=== PATIENT | male | born 1945 | race Two or more races ===

== ENCOUNTER → 2023-12-03 | Outpatient (CLI) | payer OTHER ==
[2023-12-03 06:26] LABS: Urine WBC None Seen /hpf (0 - 3)
[2023-12-03 07:02] LABS: Basophils # (auto) 0.2 10 ^3/uL (0-0.2); Basophils % (auto) 1.3 % (0.0-2.0); Eosinophils # (auto) 0.4 10 ^3/uL (0-0.8); Eosinophils % (auto) 3.2 % (0.0-7.0); Hematocrit 45.9 % (41.0-53.0); Hemoglobin 15.3 g/dL (13.5-17.5); Lymphocytes % (auto) 15.6 % (10.0-50.0); Mean Corpuscular Hemoglobin 28.7 pg (28.0-32.0); Mean Corpuscular Hgb Conc. 33.4 g/dL (32.0-36.0); Mean Corpuscular Volume 86.1 fL (80.0-100.0); Monocytes # (auto) 1.9 10 ^3/uL (0-1.3); Monocytes % (auto) 15.1 % (0.0-12.0); Neutrophils # (auto) 8.3 10 ^3/uL (1.6-8.6); Neutrophils % (auto) 64.8 % (37.0-80.0); Nucleated Red Blood Cells % 0.1 %; Red Blood Cells 5.33 10^6/uL (4.5-5.90); Red Cell Distribution Width 14.1 % (11.8-14.3); White Blood Cell 12.8 10^3/uL (4.4-10.8)
[2023-12-03 07:27] LABS: Urine Bacteria NONE SEEN /hpf (None Seen); Urine Blood Negative /uL (Negative); Urine Clarity Clear (Clear); Urine Protein, UAD Negative (Negative); Urine Specific Gravity 1.014 (1.001-1.035); Urine Urobilinogen Normal (Negative); Urine pH 5.5 (5.0-8.0)
[2023-12-03 07:28] LABS: Urine Color Straw (Yellow)
[2023-12-03 07:31] LABS: Alanine Aminotransferase 17 U/L (7-40); Albumin 4.2 g/dL (3.2-4.8); Alkaline Phosphatase 63 U/L (46-116); Anion Gap 7 (5-15); Aspartate Aminotransferase 24 U/L (13-40); BUN/Creatinine Ratio 14.7 (10.0-20.0); Bilirubin, Total 0.9 mg/dL (0.2-1.0); Blood Urea Nitrogen 15 mg/dL (9-23); Calcium 9.2 mg/dL (8.7-10.4); Carbon Dioxide 25 mmol/L (20-30); Chloride 104 mmol/L (98-107); Glucose 100 mg/dL (74-106); Magnesium 2.1 mg/dL (1.6-2.6); Potassium 5.1 mmol/L (3.5-5.1); Sodium 136 mmol/L (136-145); Uric Acid 5.7 mg/dL (3.7-9.2)
[2023-12-03 07:35] LABS: Folate (Folic Acid) 17.33 ng/mL (>5.38)
[2023-12-03 07:45] LABS: Triglycerides 97 mg/dL (< 150)
[2023-12-03 07:46] LABS: LDL Cholesterol 85 mg/dL (< 100)
[2023-12-03 07:48] LABS: Cholesterol 132 mg/dL (< 200); HDL Cholesterol 36 mg/dL (40-59)
== END | disposition home or self-care (01) ==
LOC: LAB 06:09
PROVIDERS: ATTEND Internal Medicine
DX: E61.2 Magnesium deficiency (principal); E85.9 Amyloidosis, unspecified; R82.90 Unspecified abnormal findings in urine; D51.9 Vitamin B12 deficiency anemia, unspecified; R78.89 Finding of other specified substances, not normally found in blood; E78.9 Disorder of lipoprotein metabolism, unspecified; R68.89 Other general symptoms and signs; R73.09 Other abnormal glucose
CPT/HCPCS: 36415; 80053; 80061; 81001; 82306; 82607; 82746; 83036; 83735; 84443; 84550; 85025; 87086

== ENCOUNTER → 2024-03-20 | Outpatient (CLI) | payer OTHER ==
[2024-03-20 06:30] LABS: Urine Bacteria None Seen /hpf (None Seen)
[2024-03-20 06:49] LABS: Urine Blood Negative /uL (Negative); Urine Clarity Clear (Clear); Urine Color Light-Yellow (Yellow); Urine Protein, UAD Negative (Negative); Urine Specific Gravity 1.018 (1.001-1.035); Urine Urobilinogen Normal (Negative); Urine WBC 1 /hpf (0 - 3); Urine pH 5.5 (5.0-9.0)
[2024-03-20 07:01] LABS: Basophils # (auto) 0.2 10 ^3/uL (0-0.2); Basophils % (auto) 1.3 % (0.0-2.0); Eosinophils # (auto) 0.4 10 ^3/uL (0-0.8); Eosinophils % (auto) 2.9 % (0.0-7.0); Hematocrit 44.9 % (41.0-53.0); Hemoglobin 15.3 g/dL (13.5-17.5); Mean Corpuscular Hemoglobin 28.7 pg (28.0-32.0); Mean Corpuscular Hgb Conc. 34.1 g/dL (32.0-36.0); Mean Corpuscular Volume 84.1 fL (80.0-100.0); Monocytes # (auto) 1.9 10 ^3/uL (0-1.3); Monocytes % (auto) 15.2 % (0.0-12.0); Neutrophils % (auto) 64.6 % (37.0-80.0); Nucleated Red Blood Cells % 0.1 %; Red Blood Cells 5.34 10^6/uL (4.5-5.90); Red Cell Distribution Width 13.7 % (11.8-14.3); White Blood Cell 12.4 10^3/uL (4.4-10.8)
[2024-03-20 07:30] LABS: Alanine Aminotransferase 15 U/L (7-40); Albumin 4.1 g/dL (3.2-4.8); Alkaline Phosphatase 61 U/L (46-116); Anion Gap 8 (5-15); Aspartate Aminotransferase 18 U/L (13-40); BUN/Creatinine Ratio 21.4 (10.0-20.0); Bilirubin, Total 0.9 mg/dL (0.2-1.0); Blood Urea Nitrogen 21 mg/dL (9-23); Calcium 9.6 mg/dL (8.7-10.4); Carbon Dioxide 24 mmol/L (20-30); Chloride 106 mmol/L (98-107); Glucose 97 mg/dL (74-106); Magnesium 2.1 mg/dL (1.6-2.6); Potassium 4.8 mmol/L (3.5-5.1); Sodium 138 mmol/L (136-145); Total Protein 6.9 g/dL (5.7-8.2); Uric Acid 5.3 mg/dL (3.7-9.2)
[2024-03-20 07:34] LABS: Folate (Folic Acid) 6.43 ng/mL (>5.38)
[2024-03-20 09:00] LABS: Triglycerides 128 mg/dL (< 150)
[2024-03-20 09:01] LABS: LDL Cholesterol 82 mg/dL (< 100)
[2024-03-20 09:02] LABS: Cholesterol 132 mg/dL (< 200); HDL Cholesterol 32 mg/dL (40-59)
== END | disposition home or self-care (01) ==
LOC: LAB 06:12
PROVIDERS: ATTEND Internal Medicine
DX: E79.0 Hyperuricemia without signs of inflammatory arthritis and tophaceous disease (principal); E78.9 Disorder of lipoprotein metabolism, unspecified; E61.2 Magnesium deficiency; R78.89 Finding of other specified substances, not normally found in blood; R68.89 Other general symptoms and signs; R73.09 Other abnormal glucose; D51.9 Vitamin B12 deficiency anemia, unspecified; R82.90 Unspecified abnormal findings in urine; E85.9 Amyloidosis, unspecified
CPT/HCPCS: 36415; 80053; 80061; 81001; 82306; 82607; 82746; 83036; 83735; 84443; 84550; 85025; 87086

== ENCOUNTER → 2024-10-08 | Outpatient (CLI) | payer OTHER ==
[2024-10-08 06:31] LABS: Urine Bacteria None Seen /hpf (None Seen)
[2024-10-08 06:58] LABS: Urine Blood Negative /uL (Negative); Urine Clarity Clear (Clear); Urine Color Light-Yellow (Yellow); Urine Mucus FEW (None Seen); Urine Protein, UAD Negative (Negative); Urine Specific Gravity 1.017 (1.001-1.035); Urine Urobilinogen Normal (Negative); Urine WBC <1 /hpf (0 - 3)
[2024-10-08 07:09] LABS: Basophils # (auto) 0.1 10 ^3/uL (0-0.2); Basophils % (auto) 0.8 % (0.0-2.0); Eosinophils # (auto) 0.3 10 ^3/uL (0-0.8); Eosinophils % (auto) 2.6 % (0.0-7.0); Hematocrit 47.4 % (41.0-53.0); Lymphocytes % (auto) 17.6 % (10.0-50.0); Mean Corpuscular Hemoglobin 28.7 pg (28.0-32.0); Mean Corpuscular Hgb Conc. 33.7 g/dL (32.0-36.0); Mean Corpuscular Volume 85.2 fL (80.0-100.0); Monocytes # (auto) 1.6 10 ^3/uL (0-1.3); Monocytes % (auto) 14.2 % (0.0-12.0); Neutrophils # (auto) 7.5 10 ^3/uL (1.6-8.6); Neutrophils % (auto) 64.8 % (37.0-80.0); Nucleated Red Blood Cells % 0.3 %; Platelet Count (auto) 262 10^3/uL (140-450); Red Blood Cells 5.56 10^6/uL (4.5-5.90); White Blood Cell 11.6 10^3/uL (4.4-10.8)
[2024-10-08 07:40] LABS: Alanine Aminotransferase 17 U/L (7-40); Albumin 4.2 g/dL (3.2-4.8); Alkaline Phosphatase 80 U/L (46-116); Anion Gap 7 (5-15); Aspartate Aminotransferase 21 U/L (13-40); BUN/Creatinine Ratio 17.5 (10.0-20.0); Bilirubin, Total 0.9 mg/dL (0.2-1.0); Blood Urea Nitrogen 18 mg/dL (9-23); Calcium 9.9 mg/dL (8.7-10.4); Carbon Dioxide 28 mmol/L (20-31); Chloride 104 mmol/L (98-107); Cholesterol 175 mg/dL (< 200); Glucose 96 mg/dL (74-106); HDL Cholesterol 41 mg/dL (40-59); Potassium 4.4 mmol/L (3.5-5.1); Sodium 139 mmol/L (136-145); Total Protein 7.2 g/dL (5.7-8.2); Triglycerides 107 mg/dL (< 150)
[2024-10-08 07:44] LABS: LDL Cholesterol 122 mg/dL (< 100)
[2024-10-08 07:45] LABS: Folate (Folic Acid) 10.08 ng/mL (>5.38)
[2024-10-08 09:23] LABS: Uric Acid 7.1 mg/dL (3.7-9.2)
== END | disposition home or self-care (01) ==
LOC: LAB 06:06
PROVIDERS: ATTEND Internal Medicine
DX: E78.9 Disorder of lipoprotein metabolism, unspecified (principal); R79.89 Other specified abnormal findings of blood chemistry; R68.89 Other general symptoms and signs; R73.09 Other abnormal glucose
CPT/HCPCS: 36415; 80053; 80061; 81001; 82306; 82607; 82746; 83036; 84443; 84550; 85025; 87086

== ENCOUNTER → 2024-12-25 | Outpatient (CLI) | payer OTHER ==
[2024-12-25 06:26] LABS: Urine Bacteria None Seen /hpf (None Seen)
[2024-12-25 06:41] LABS: Basophils # (auto) 0.1 10 ^3/uL (0-0.2); Basophils % (auto) 1.1 % (0.0-2.0); Eosinophils # (auto) 0.3 10 ^3/uL (0-0.8); Eosinophils % (auto) 2.6 % (0.0-7.0); Hematocrit 47.3 % (41.0-53.0); Hemoglobin 16.6 g/dL (13.5-17.5); Lymphocytes # (auto) 2.2 10 ^3/uL (0.4-5.4); Lymphocytes % (auto) 16.9 % (10.0-50.0); Mean Corpuscular Hemoglobin 29.6 pg (28.0-32.0); Mean Corpuscular Volume 84.3 fL (80.0-100.0); Monocytes # (auto) 1.8 10 ^3/uL (0-1.3); Monocytes % (auto) 14.1 % (0.0-12.0); Neutrophils # (auto) 8.5 10 ^3/uL (1.6-8.6); Neutrophils % (auto) 65.3 % (37.0-80.0); Nucleated Red Blood Cells % 0.1 %; Platelet Count (auto) 260 10^3/uL (140-450); Red Blood Cells 5.61 10^6/uL (4.5-5.90); Red Cell Distribution Width 14.2 % (11.8-14.3)
[2024-12-25 06:44] LABS: Urine Blood Negative /uL (Negative); Urine Clarity Clear (Clear); Urine Color Light-Yellow (Yellow); Urine Protein, UAD Negative (Negative); Urine Specific Gravity 1.019 (1.001-1.035); Urine Squamous Epithelial Cell None Seen /hpf (<5); Urine Urobilinogen Normal (Negative); Urine WBC < 1 /HPF (0-3)
[2024-12-25 06:52] LABS: Alanine Aminotransferase 11 U/L (7-40); Albumin 4.6 g/dL (3.2-4.8); Alkaline Phosphatase 74 U/L (46-116); Anion Gap 9 (5-15); Aspartate Aminotransferase 17 U/L (13-40); BUN/Creatinine Ratio 21.1 (10.0-20.0); Blood Urea Nitrogen 23 mg/dL (9-23); Calcium 10.1 mg/dL (8.7-10.4); Carbon Dioxide 26 mmol/L (20-31); Chloride 103 mmol/L (98-107); Cholesterol 166 mg/dL (< 200); Glucose 93 mg/dL (74-106); LDL Cholesterol 113 mg/dL (< 100); Potassium 4.9 mmol/L (3.5-5.1); Sodium 138 mmol/L (136-145); Total Protein 7.6 g/dL (5.7-8.2); Triglycerides 160 mg/dL (< 150)
[2024-12-25 06:53] LABS: Bilirubin, Total 0.8 mg/dL (0.2-1.0); HDL Cholesterol 34 mg/dL (40-59)
[2024-12-25 06:54] LABS: Folate (Folic Acid) 12.08 ng/mL (>5.38)
[2024-12-25 07:02] LABS: Uric Acid 6.7 mg/dL (3.7-9.2)
== END | disposition home or self-care (01) ==
LOC: LAB 06:04
PROVIDERS: ATTEND Internal Medicine
DX: E61.2 Magnesium deficiency (principal); E55.9 Vitamin D deficiency, unspecified; D51.9 Vitamin B12 deficiency anemia, unspecified; E78.49 Other hyperlipidemia; E79.0 Hyperuricemia without signs of inflammatory arthritis and tophaceous disease; R94.6 Abnormal results of thyroid function studies; R82.79 Other abnormal findings on microbiological examination of urine; R82.998 Other abnormal findings in urine; R73.09 Other abnormal glucose; R68.89 Other general symptoms and signs; R82.90 Unspecified abnormal findings in urine
CPT/HCPCS: 36415; 80053; 80061; 81001; 82306; 82607; 82746; 83036; 83880; 84443; 84550; 85025; 87086

== ENCOUNTER 2025-04-05 06:08 | Outpatient (CLI) | payer OTHER | END 2025-04-05 17:00 | disposition home or self-care (01) | LOC: LAB 06:08 | PROVIDERS: ATTEND Urology | DX: N40.1 Benign prostatic hyperplasia with lower urinary tract symptoms (principal) | CPT/HCPCS: 84153 ==

== ENCOUNTER → 2025-04-12 | Outpatient (CLI) | payer OTHER ==
[2025-04-12 06:25] LABS: Urine Bacteria None Seen /hpf (None Seen)
[2025-04-12 07:06] LABS: Basophils # (auto) 0.1 10 ^3/uL (0-0.2); Basophils % (auto) 1.4 % (0.0-2.0); Eosinophils # (auto) 0.4 10 ^3/uL (0-0.8); Eosinophils % (auto) 3.8 % (0.0-7.0); Hematocrit 44.6 % (41.0-53.0); Hemoglobin 15.2 g/dL (13.5-17.5); Lymphocytes % (auto) 20.2 % (10.0-50.0); Mean Corpuscular Hemoglobin 28.2 pg (28.0-32.0); Mean Corpuscular Hgb Conc. 34.1 g/dL (32.0-36.0); Mean Corpuscular Volume 82.9 fL (80.0-100.0); Monocytes # (auto) 1.7 10 ^3/uL (0-1.3); Monocytes % (auto) 17.1 % (0.0-12.0); Neutrophils # (auto) 5.7 10 ^3/uL (1.6-8.6); Neutrophils % (auto) 57.5 % (37.0-80.0); Nucleated Red Blood Cells % 0.1 %; Platelet Count (auto) 212 10^3/uL (140-450); Red Blood Cells 5.38 10^6/uL (4.5-5.90); Red Cell Distribution Width 13.5 % (11.8-14.3); White Blood Cell 9.9 10^3/uL (4.4-10.8)
[2025-04-12 07:50] LABS: Urine Blood Negative /uL (Negative); Urine Clarity Clear (Clear); Urine Color Light-Yellow (Yellow); Urine Protein, UAD Negative (Negative); Urine Specific Gravity 1.018 (1.001-1.035); Urine Squamous Epithelial Cell FEW /hpf (<5); Urine Urobilinogen Normal (Negative); Urine WBC < 1 /HPF (0-3)
[2025-04-12 08:18] LABS: Alanine Aminotransferase 13 U/L (7-40); Alkaline Phosphatase 59 U/L (46-116); Anion Gap 7 (5-15); Calcium 9.9 mg/dL (8.7-10.4); Carbon Dioxide 27 mmol/L (20-31); Chloride 105 mmol/L (98-107); Glucose 97 mg/dL (74-106); Potassium 4.3 mmol/L (3.5-5.1); Sodium 139 mmol/L (136-145); Triglycerides 98 mg/dL (< 150)
[2025-04-12 08:19] LABS: Albumin 4.3 g/dL (3.2-4.8); Aspartate Aminotransferase 17 U/L (<34)
[2025-04-12 08:20] LABS: Bilirubin, Total 0.5 mg/dL (0.2-1.0); Blood Urea Nitrogen 25 mg/dL (9-23); Cholesterol 180 mg/dL (< 200); HDL Cholesterol 34 mg/dL (40-59); LDL Cholesterol 140 mg/dL (< 100)
[2025-04-12 08:36] LABS: Uric Acid 8.4 mg/dL (3.7-9.2)
== END | disposition home or self-care (01) ==
LOC: LAB 06:03
PROVIDERS: ATTEND Internal Medicine
DX: E78.49 Other hyperlipidemia (principal); E61.2 Magnesium deficiency; E79.0 Hyperuricemia without signs of inflammatory arthritis and tophaceous disease; E55.9 Vitamin D deficiency, unspecified; R94.6 Abnormal results of thyroid function studies; R82.998 Other abnormal findings in urine; R82.90 Unspecified abnormal findings in urine; R82.79 Other abnormal findings on microbiological examination of urine; D51.9 Vitamin B12 deficiency anemia, unspecified; R68.89 Other general symptoms and signs; R73.09 Other abnormal glucose
CPT/HCPCS: 36415; 80053; 80061; 81001; 82306; 82746; 83036; 84443; 84550; 85025; 87086

== ENCOUNTER 2025-10-04 04:57 | Inpatient (IN) | payer OTHER ==
[~2025-10-04] VITALS: Ht 182.9 cm; Wt 111.4 kg
--- NOTE | 2025-10-04 06:52 | ED.PDOC ---
History of Present Illness HPI Comments 80 year old male with PMHx of HTN presents to the emergency department for chief complaint of L leg injury and general weakness onset 3 days ago. Pt states that he fell off his bed onto his R knee and could not stand up for 3.5 hours. Pt states that the following day he reported a fever of 103 F and his left leg began swelling profusely. Pt refused to go to ER until took him this morning due to intense episodes of confusion and progression of symptoms. In the ED, Pt reports visible inflammation and swelling of the L leg and limited ability to walk. Pt denies associated symptoms of headache, numbness, chest pain, SOB, nausea, vomiting, or diarrhea. Pt vitals are otherwise stable at this time. Chief Complaint: General Weakness Time Seen by MD: 06:49 Reviewed Notes: Nurses Notes, Medications, Allergies Allergies: Coded Allergies: Ciprofloxacin (Verified Allergy, Unknown, 10/04/25) Information Source: Patient, Spouse Mode of Arrival: EMS Severity: Moderate Timing: Days Duration: Since onset Prehospital treatment: None Past Medical History PAST MEDICAL HISTORY: HTN, Denies Surgical History: Denies all surgeries Constitutional: reports: fever, weakness; denies: chills, diaphoresis, fatigue, malaise, sweats, others EENTM: denies: blurred vision, double vision, ear bleeding, ear discharge, ear drainage, ear pain, ear ringing, eye pain, eye redness, hearing loss, mouth pain, mouth swelling, nasal discharge, nose bleeding, nose congestion, nose pain, photophobia, tearing, throat pain, throat swelling, voice changes, others Respiratory: denies: cough, hemoptysis, orthopnea, SOB at rest, shortness of breath, SOB with excertion, stridor, wheezing, others Cardiovascular: denies: chest pain, dizzy spells, diaphoresis, Dyspnea on exertion, edema, irregular heart beat, left arm pain, lightheadedness, palpitations, PND, syncope, others Gastrointestinal: denies: abdomen distended, abdominal pain, blood streaked bowels, constipated, diarrhea, dysphagia, difficulty swallowing, hematemesis, melena, nausea, poor appetite, poor fluid intake, rectal bleeding, rectal pain, vomiting, others Genitourinary: denies: burning, dysuria, flank pain, frequency, hematuria, incontinence, penile discharge, penile sore, pain, testicle pain, testicle swelling, urgency, others Neurological: denies: dizziness, fainting, headache, left sided numbness, left sided weakness, numbness, paresthesia, pre-existing deficit, right sided numbness, right sided weakness, seizure, speech problems, tingling, tremors, weakness, others Musculoskeletal: reports: muscle pain; denies: back pain, gout, joint pain, joint swelling, muscle stiffness, neck pain, others Integumetry: reports: bruises, change in color, dryness; denies: change in hair/nails, laceration, lesions, lumps, rash, wounds, others Allergic/Immunocompromised: denies: Difficulty Healing, Frequent Infections, Hives, Itching, others Hematologic/Lymphatic: denies: anemia, blood clots, easy bleeding, easy bruising, swollen glands, others Endocrine: denies: excessive hunger, excessive sweating, excessive thirst, excessive urination, flushing, intolerance to cold, intolerance to heat, unexplained weight gain, unexplained weight loss, others Psychiatric: denies: anxiety, bipolar disorder, depression, hopeless, panic disorder, schizophrenia, sleepless, suicidal, others All Other Systems: Reviewed and Negative Physical Exam General Appearance: Moderate Distress HEENT: Normal ENT Inspection, Pharynx Normal, TMs Normal Neck: Full Range of Motion, Non-Tender, Normal, Normal Inspection Respiratory: Chest Non-Tender, Lungs Clear, No Accessory Muscle Use, No Respiratory Distress, Normal Breath Sounds Cardiovascular: No Edema, No JVD, No Murmur, No Gallop, Normal Peripheral Pulses, Regular Rate/Rhythm Breast Exam: Deferred Gastrointestinal: No Organomegaly, Non Tender, No Pulsatile Mass, Normal Bowel Sounds, Soft Genitalia: Deferred Pelvic: Deferred Rectal: Deferred Extremities: No calf tenderness, Swelling (Left lower extremity mild) Musculoskeletal : Apperance: Normal Neurologic: Alert, 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 Was a procedure done?: No Differential Dx Considerations may include: Anemia Electrolyte imbalance X-Ray, Labs, Meds, VS Vital Signs Date Time Temp Pulse Resp B/P (MAP) Pulse Ox O2 Delivery O2 Flow Rate FiO2 10/04/25 10:17 97.8 87 16 141/74 (96) 94 97.8 10/04/25 09:59 16 Room Air* 0 21 10/04/25 07:39 97.7 94 16 161/78 (105) 95 97.7 10/04/25 05:09 99 10/04/25 05:04 98.9 100 16 11 98 98.9 Lab Test 10/04/25 10:05 10/04/25 07:33 Range/Units Lactic Acid Level 1.6 0.4-2.0 mmol/L White Blood Count 25.7 H 4.4-10.8 10^3/uL Red Blood Count 6.15 H 4.5-5.90 10^6/uL Hemoglobin 17.1 13.5-17.5 g/dL Hematocrit 50.2 41.0-53.0 % Mean Corpuscular Volume 81.6 80.0-100.0 fL Mean Corpuscular Hemoglobin 27.8 L 28.0-32.0 pg Mean Corpuscular Hemoglobin Concent 34.1 32.0-36.0 g/dL Red Cell Distribution Width 14.0 11.8-14.3 % Platelet Count 300 140-450 10^3/uL Mean Platelet Volume 7.9 6.9-10.8 fL Neutrophils (%) (Auto) 37.0-80.0 % Lymphocytes (%) (Auto) 10.0-50.0 % Monocytes (%) (Auto) 0.0-12.0 % Basophils (%) (Auto) 0.0-2.0 % Neutrophils # (Auto) 1.6-8.6 10 ^3/uL Lymphocytes # (Auto) 0.4-5.4 10 ^3/uL Monocytes # (Auto) 0-1.3 10 ^3/uL Differential Total Cells Counted 100.0 100 Neutrophils % (Manual) 83 H 37.0-80.0 Band Neutrophils % (Manual) 0 Lymphocytes % (Manual) 7 L 10.0-50.0 Monocytes % (Manual) 10 0-12 Eosinophils % (Manual) 0 0-7 Basophils % (Manual) 0 0.0-2.0 Metamyelocytes % (manual) 0 Myelocytes % (Manual) 0 Promyelocytes % (Manual) 0 Blast Cells % (Manual) 0 Reactive Lymphocytes 0 Platelet Estimate Adequate Erythrocyte Sedimentation Rate 33 H 0-20 mm/hr Sodium Level 137 136-145 mmol/L Potassium Level 3.8 3.5-5.1 mmol/L Chloride Level 102 98-107 mmol/L Carbon Dioxide Level 25 20-31 mmol/L Anion Gap 10 5-15 Blood Urea Nitrogen 21 9-23 mg/dL Creatinine 1.29 0.700-1.30 mg/dL Glomerular Filtration Rate Calc 56 >90 mL/min BUN/Creatinine Ratio 16.3 10.0-20.0 Serum Glucose 108 H 74-106 mg/dL Calcium Level 9.7 8.7-10.4 mg/dL Creatine Kinase 1383 H 46-171 U/L Troponin I High Sensitivity 284 *H </=54 ng/L B-Type Natriuretic Peptide 119.67 0-100 pg/mL Current Medications Medications (Trade) Dose Ordered Sig/Ilsa Route Start Time Stop Time Status Last Admin Sodium Chloride 1,000 ml @ 1,000 mls/hr Q1H ONCE IV 10/04/25 07:00 10/04/25 07:59 DC 10/04/25 08:21 Sodium Chloride 1,000 ml @ 150 mls/hr Q6H40M ONCE IV 10/04/25 07:00 10/04/25 13:39 DC 10/04/25 07:00 Ceftriaxone Sodium 50 ml @ 100 mls/hr ONCE ONCE IV 10/04/25 09:15 10/04/25 09:44 DC 10/04/25 09:15 Clindamycin Phosphate 50 ml @ 50 mls/hr ONCE ONCE IV 10/04/25 09:15 10/04/25 10:14 DC 10/04/25 16:45 Patient alert. Vitals stable. Came in because of wound of left lower extremity. Answering questions pain Saturation pristine on room air. Explained to the patient. Was told to follow up with his primary care physician. Was told to come back if there is any problem. Time of 1ST Reevaluation: 07:19 Reevaluation 1ST: Unchanged Patient Education/Counseling: Diagnosis, Treatment, Need For Follow Up Family Education/Counseling: Diagnosis, Treatment, Need For Follow Up SEPSIS Sepsis Screen Date sepsis recognized/suspect: Oct 04, 2025 Time Sepsis recognized/suspect: 0507 Recent Procedure: No On Antibiotic Therapy: No Respiratory Rate >20: No Heart Rate >90: Yes Temp<36 C (96.8 F) or >38.3 C: No SBP <90 or MAP <65 mmHG: No New Acute Mental Status Change: No Is the patient on CPAP, BIPAP,: No Physician Orders Electrocardigram (10/04/25 06:40) Chest Portable (10/04/25 06:46) Lt Lower Dvt (10/04/25 07:28) Blood Culture (10/04/25 09:01) Electrocardigram (10/04/25 09:03) Vital Signs Date Time Temp Pulse Resp B/P (MAP) Pulse Ox O2 Delivery O2 Flow Rate FiO2 10/04/25 10:17 97.8 87 16 141/74 (96) 94 97.8 10/04/25 09:59 16 Room Air* 0 21 10/04/25 07:39 97.7 94 16 161/78 (105) 95 97.7 10/04/25 05:09 99 10/04/25 05:04 98.9 100 16 11 98 98.9 Laboratory Tests Test 10/04/25 07:33 10/04/25 10:05 White Blood Count 25.7 10^3/uL (4.4-10.8) H Lactic Acid Level 1.6 mmol/L (0.4-2.0) Medications Medications Dose Ordered Sig/Ilsa Route Start Time Stop Time Status Last Admin Dose Admin Ceftriaxone Sodium 50 ml @ 100 mls/hr ONCE ONCE IV 10/04/25 09:15 10/04/25 09:44 DC 10/04/25 09:15 Clindamycin Phosphate 50 ml @ 50 mls/hr ONCE ONCE IV 10/04/25 09:15 10/04/25 10:14 DC 10/04/25 16:45 Sodium Chloride 1,000 ml @ 150 mls/hr Q6H40M ONCE IV 10/04/25 07:00 10/04/25 13:39 DC 10/04/25 07:00 Sodium Chloride 1,000 ml @ 1,000 mls/hr Q1H ONCE IV 10/04/25 07:00 10/04/25 07:59 DC 10/04/25 08:21 Departure 1 Departure Time of Disposition: 07:27 Impression: Primary Impression: Sepsis, unspecified organism Qualified Codes: A41.9 - Sepsis, unspecified organism Additional Impressions: Cellulitis Qualified Codes: L03.116 - Cellulitis of left lower limb Demand ischemia Disposition: ADMITTED INPATIENT Admit to: Med Surg Condition: Guarded Critical Care Note Critical Care Time?: Yes (90 min-critical care time only) Stability Stability form required: No Heart Score Heart Score: Heart Score Response (Comments) Value History N/A 0 EKG N/A 0 Age N/A 0 Risk Factors N/A 0 Troponin N/A 0 Total 0 I personally scribed for LUBA FAGAN MD ([email or web address]) on 10/04/25 at 06:52. Electronically submitted by Pauline Kimball ([email or web address]). I personally scribed for LUBA FAGAN MD ([email or web address]) on 10/04/25 at 07:17. Electronically submitted by Mendoza Padilla ([email or web address]). LUBA FAGAN MD Oct 04, 2025 06:52
--- NOTE | 2025-10-04 06:53 | ECG ---
[facility] Test Date: 2025-10-04 Test Time: 05:09:08 Pat Name: LIZBET CANTRELL Department: [facility] ED Room: [address] [place] [address] Gender: M Census Taker: SULLY : 1945 Requested By: LUBA FAGAN Order Number: [id number] Reading MD: Ino Black Measurements Intervals Bode Rate: 99 P: -46 ND: 214 QRS: -55 QRSD: 139 T: 28 QT: 382 QTc: 491 Interpretive Statements Sinus or ectopic atrial rhythm Borderline prolonged ND interval RBBB and LAFB Minimal ST elevation, lateral leads Electronically Signed On 10-04-2025 15:29:27 PST by Ino Black Please click the below link to view image of tracing.
[2025-10-04] MEDS: SODIUM CHLORIDE 0.9% 1,000 ML IV ONE ×2 (07:00→08:21)
--- NOTE | 2025-10-04 07:42 | DVH ---
CLINICAL INFORMATION: Shortness of breath. TECHNIQUE: Single AP portable chest radiograph was obtained. COMPARISON: None FINDINGS: Lungs: Atelectasis in the lung bases. No focal consolidation. No pneumothorax or pleural effusion. Cardiac: Heart size is within normal limits. Pulmonary vasculature: Unremarkable. Mediastinum/josué: Unremarkable. Bones: No acute osseous abnormality identified. Severe arthritic changes in both shoulders partially visualized. Possible loose body in the right axillary recess. Other: No other significant findings. IMPRESSION: 1. No evidence of acute disease in the chest. 2. Nonacute findings as described above.
[2025-10-04 07:59] LABS: Hematocrit 50.2 % (41.0-53.0); Hemoglobin 17.1 g/dL (13.5-17.5); Mean Corpuscular Hemoglobin 27.8 pg (28.0-32.0); Mean Corpuscular Volume 81.6 fL (80.0-100.0)
[2025-10-04 08:04] LABS: Chloride 102 mmol/L (98-107); Potassium 3.8 mmol/L (3.5-5.1); Sodium 137 mmol/L (136-145)
[2025-10-04 08:05] LABS: Anion Gap 10 (5-15); Calcium 9.7 mg/dL (8.7-10.4); Carbon Dioxide 25 mmol/L (20-31)
[2025-10-04 08:10] LABS: BUN/Creatinine Ratio 16.3 (10.0-20.0); Blood Urea Nitrogen 21 mg/dL (9-23)
[2025-10-04 08:16] LABS: Glucose 108 mg/dL (74-106)
[2025-10-04 08:33] LABS: Creatine Kinase IFCC 1383 U/L (46-171)
[2025-10-04 08:58] LABS: Total Cells Counted 100.0 (100)
--- NOTE | 2025-10-04 09:38 | DVH ---
US LT LOWER DVT US 10/04/2025 07:36 AM CLINICAL HISTORY: dvt COMPARISON: None TECHNIQUE: Duplex Doppler evaluation of the deep venous system of the left lower extremity from the common femoral vein to the popliteal vein including color Doppler and spectral/pulsed waveform analysis was performed. FINDINGS: The common femoral vein demonstrates appropriate compressibility and waveform variability. There is compressibility/patency of the great saphenous vein at the proximal thigh. The femoral vein demonstrates appropriate compressibility and waveform variability. The deep femoral vein demonstrates appropriate compressibility and waveform variability. The popliteal vein demonstrates appropriate compressibility and waveform variability. There is color flow in the tibioperoneal trunk and posterior tibial vein. A benign-appearing mildly prominent left groin lymph node noted likely reactive in nature. IMPRESSION: 1. No deep venous thrombosis left lower extremity. If clinical concern/symptoms persist or worsen, short-interval follow-up study is suggested.
[2025-10-04 09:59] VITALS: RESP 16
[2025-10-04] MEDS ORDERED: ONDANSETRON HCL 4 MG/2 ML VIAL IV PRN (11:45)
[2025-10-04] MEDS ORDERED: NITROGLYCERIN 0.4 MG SL TAB SL PRN (11:45)
[2025-10-04 12:07] LABS: Urine Protein, UAD 1+ (Negative)
--- NOTE | 2025-10-04 12:22 | DVHHPRES ---
History of Present Illness Resident Creating Document: MARY PORTILLO RESIDENT History of Present Illness Justin is a patient with a history of borderline diabetes (resolved after 125- pound weight loss) and hypertension presented to ED after a fall that occurred on Saturday and wound on left lower extremity which has been painful. The patient reports sliding off his bed while awake, which resulted in his knees rolling across the carpet. He did not hit his head during the fall. It took approximately 3.5 hours for him and a friend to get him back up, with his also present at home. Following the fall, he was able to eat in his recliner and later get up to use the restroom. On Saturday, he remained in his chair and experienced difficulty getting up easily, feeling weak from the previous day's incident. He uses a walker when having problems with his knee and has a history of knee surgery. The patient denies fever, cold symptoms, cough, vomiting, difficulty with urination, burning sensation, or back/side pain. He reports no other current symptoms related to the fall. Patient reported the wound on the left lower extremity is there for long time but recently started having more painful. Unable to give much information about the wound. Medical History - Hypertension - History of borderline diabetes, resolved after 125-pound weight loss Surgical History - Knee surgery Medications and Supplements( for med rec) - Hydrocodone - Lipitor 10 - Oxybutynin for urination - Allopurinol Social History - Living Situation: Lives at home with - Substance Use: Denies smoking and drinking when asked - Mobility: Uses a walker when having problems with knee Review of Systems: Positive for pain in the left lower extremity and swelling bed rest of ROS is negative General: Negative for fever. Respiratory: Negative for cough, cold. Gastrointestinal: Negative for vomiting. Genitourinary: Negative for difficulty with urination, burning sensation, back pain, flank pain. Review of Systems Allergies: Coded Allergies: Ciprofloxacin (Verified Allergy, Unknown, 10/04/25) Medications Current Medications Medications Dose Ordered Sig/Ilsa Route Start Time Stop Time Status Last Admin Dose Admin Sodium Chloride 10 ml Q8HR IV 10/04/25 14:00 UNV Sodium Chloride 1,000 ml @ 60 mls/hr [id number] IV 10/04/25 11:45 UNV Ondansetron HCl 4 mg Q4HP PRN IV 10/04/25 11:45 UNV Enoxaparin Sodium 40 mg DAILY SC 10/05/25 10:00 UNV Acetaminophen 650 mg Q6HP PRN PO 10/04/25 11:45 UNV Morphine Sulfate 2 mg Q4HPRN PRN IV 10/04/25 11:45 UNV Nitroglycerin 0.4 mg Q5MINP PRN SL 10/04/25 11:45 UNV Morphine Sulfate 2 mg Q30M PRN IV 10/04/25 11:45 UNV Exam Vital Signs Vital Signs Date Time Temp Pulse Resp B/P (MAP) Pulse Ox O2 Delivery O2 Flow Rate FiO2 10/04/25 10:17 97.8 87 16 141/74 (96) 94 97.8 10/04/25 09:59 Room Air* 0 21 Exam Pt is lying on bed General Appearance: Alert, Oriented X3, Cooperative, Not in acute distress HEENT: Atraumatic, Mucous membranes moist/pink Respiratory: Clear to auscultation, Normal air movement, No added sounds Cardiovascular: Regular rate, Normal S1, Normal S2, No murmurs Abdominal: Active bowel sounds, Soft, no distention, no tenderness Extremities: 2+ edema left leg and lesion on left lower leg, multiple abrasions over bilateral legs Skin: Lesion noted on left leg described Neuro: Normal speech, sensorimotor deficits none Psych/Mental Status: Mental status NL, Mood NL Nurse was there as steam table associate during examination Labs/Xrays Labs Test 10/04/25 11:45 10/04/25 10:05 10/04/25 07:33 Range/Units Urine Color Light-yellow Yellow Urine Clarity Clear Clear Urine pH 5.5 5.0-9.0 Urine Specific [place] 1.015 1.001-1.035 Urine Protein 1+ H Negative Urine Ketones Negative Negative Urine Blood 1+ H Negative /uL Urine Nitrite Negative Negative Urine Bilirubin Negative Negative Urine Urobilinogen Normal Negative mg/dL Urine Leukocyte Esterase Negative Negative /uL Urine RBC 2 0 - 3 /hpf Urine Microscopic WBC 1 0-3 /HPF Urine Squamous Epithelial Cells Few <5 /hpf Urine Bacteria Few H None Seen /hpf Urine Mucus Few None Seen Urine Glucose Normal Normal mg/dL Lactic Acid Level 1.6 0.4-2.0 mmol/L White Blood Count 25.7 H 4.4-10.8 10^3/uL Red Blood Count 6.15 H 4.5-5.90 10^6/uL Hemoglobin 17.1 13.5-17.5 g/dL Hematocrit 50.2 41.0-53.0 % Mean Corpuscular Volume 81.6 80.0-100.0 fL Mean Corpuscular Hemoglobin 27.8 L 28.0-32.0 pg Mean Corpuscular Hemoglobin Concent 34.1 32.0-36.0 g/dL Red Cell Distribution Width 14.0 11.8-14.3 % Platelet Count 300 140-450 10^3/uL Mean Platelet Volume 7.9 6.9-10.8 fL Neutrophils (%) (Auto) 37.0-80.0 % Lymphocytes (%) (Auto) 10.0-50.0 % Monocytes (%) (Auto) 0.0-12.0 % Basophils (%) (Auto) 0.0-2.0 % Neutrophils # (Auto) 1.6-8.6 10 ^3/uL Lymphocytes # (Auto) 0.4-5.4 10 ^3/uL Monocytes # (Auto) 0-1.3 10 ^3/uL Differential Total Cells Counted 100.0 100 Neutrophils % (Manual) 83 H 37.0-80.0 Band Neutrophils % (Manual) 0 Lymphocytes % (Manual) 7 L 10.0-50.0 Monocytes % (Manual) 10 0-12 Eosinophils % (Manual) 0 0-7 Basophils % (Manual) 0 0.0-2.0 Metamyelocytes % (manual) 0 Myelocytes % (Manual) 0 Promyelocytes % (Manual) 0 Blast Cells % (Manual) 0 Reactive Lymphocytes 0 Platelet Estimate Adequate Sodium Level 137 136-145 mmol/L Potassium Level 3.8 3.5-5.1 mmol/L Chloride Level 102 98-107 mmol/L Carbon Dioxide Level 25 20-31 mmol/L Anion Gap 10 5-15 Blood Urea Nitrogen 21 9-23 mg/dL Creatinine 1.29 0.700-1.30 mg/dL Glomerular Filtration Rate Calc 56 >90 mL/min BUN/Creatinine Ratio 16.3 10.0-20.0 Serum Glucose 108 H 74-106 mg/dL Calcium Level 9.7 8.7-10.4 mg/dL Creatine Kinase 1383 H 46-171 U/L Troponin I High Sensitivity 284 *H </=54 ng/L SEPSIS Sepsis Screen Date sepsis recognized/suspect: Oct 04, 2025 Time Sepsis recognized/suspect: 0507 Recent Procedure: No On Antibiotic Therapy: No Respiratory Rate >20: No Heart Rate >90: Yes Temp<36 C (96.8 F) or >38.3 C: No SBP <90 or MAP <65 mmHG: No New Acute Mental Status Change: No Is the patient on CPAP, BIPAP,: No Physician Orders Chest Portable (10/04/25 06:46) Sodium Chloride 0.9% (10/04/25 07:00) Lt Lower Dvt (10/04/25 07:28) Blood Culture (10/04/25 09:01) Electrocardigram (10/04/25 09:03) Admit (10/04/25 11:43) Allergies (10/04/25 11:43) Code Status (10/04/25 11:43) 2 Gm Sodium Diet (10/04/25 Lunch) Sodium Chloride Lock (Saline Lock Ns) (10/04/25 14:00) Sodium Chloride 0.9% (10/04/25 11:45) Ondansetron Hcl (Zofran) (10/04/25 11:45) Enoxaparin Sodium (Lovenox) (10/05/25 10:00) Complete Blood Count (10/05/25 04:00) Comprehensive Metabolic Panel (10/05/25 04:00) Condition: Fair (10/04/25 11:43) Acetaminophen Tablet (Tylenol Tablet) (10/04/25 11:45) Morphine Sulfate Injection (10/04/25 11:45) Nitroglycerin Sublingual (Ntrostat Subli (10/04/25 11:45) Morphine Sulfate Injection (10/04/25 11:45) Oxygen By Nasal Cannula (10/04/25 11:43) Stat Ekg For Chest Pain (10/04/25 11:43) Notify Md Of Changes From Base (10/04/25 11:43) Curing Room Worker For 24 Hours (10/04/25 11:43) Emergency Dysrhythmia Protocol (10/04/25 11:43) Rhythm Strips Once Every Shift (10/04/25 11:43) B-Type Natriuretic Peptide (10/04/25 11:43) Wound Culture W/ Gs (10/04/25 11:43) Clean Wound (10/04/25 11:43) * Wound Consult (10/04/25 11:43) Troponin-I Hs (10/04/25 11:43) Erythrocyte Sedimentation Rate (10/04/25 11:43) PTPTT (10/04/25 11:43) Urinalysis (10/04/25 11:43) Troponin-I Hs (10/04/25 12:43) Ct L Foot Wo Contrast (10/04/25 11:43) Hydralazine Injection (Apresoline Inject (10/04/25 12:15) Sodium Chloride 0.9% (10/04/25 12:15) Clindamycin 600mg Iv (Cleocin Iv) (10/04/25 14:00) Ceftriaxone 1gm/50ml (Rocephin) (10/05/25 09:00) Bilat Low Ext Art Duplex (10/04/25 12:11) Vital Signs Date Time Temp Pulse Resp B/P (MAP) Pulse Ox O2 Delivery O2 Flow Rate FiO2 10/04/25 10:17 97.8 87 16 141/74 (96) 94 97.8 10/04/25 09:59 16 Room Air* 0 21 10/04/25 07:39 97.7 94 16 161/78 (105) 95 97.7 10/04/25 05:09 99 10/04/25 05:04 98.9 100 16 11 98 98.9 Laboratory Tests Test 10/04/25 07:33 10/04/25 10:05 White Blood Count 25.7 10^3/uL (4.4-10.8) H Lactic Acid Level 1.6 mmol/L (0.4-2.0) Medications Medications Dose Ordered Sig/Ilsa Route Start Time Stop Time Status Last Admin Dose Admin Ceftriaxone Sodium 50 ml @ 100 mls/hr ONCE ONCE IV 10/04/25 09:15 10/04/25 09:44 DC 10/04/25 09:15 100 MLS/HR Sodium Chloride 1,000 ml @ 150 mls/hr Q6H40M ONCE IV 10/04/25 07:00 10/04/25 13:39 10/04/25 07:00 150 MLS/HR Sodium Chloride 1,000 ml @ 1,000 mls/hr Q1H ONCE IV 10/04/25 07:00 10/04/25 07:59 DC 10/04/25 08:21 1,000 MLS/HR Assessment/Plan Assessment/Plan Justin is a patient with history of borderline diabetes (resolved with 125- pound weight loss) and hypertension who presents after falling off his bed on Saturday, requiring 3.5 hours to get up, with subsequent weakness along with the wound on left lower extremity: Sepsis likely due to below Left lower extremity cellulitis Rule out left lower extremity abscess /osteomyelitis Rule out PAD Ruled out DVT NSTEMI likely type 2 due to above-repeat troponins Possible rhabdomyolysis from above Plan: - Start antibiotics Rocephin for Gram-negative coverage and clindamycin for justin toxin( no Pseudomonas / MRSA coverage as needed as patient is not immunocompromised and currently living at home) - IV fluids per sepsis protocol - avoid nephrotoxic agents - wound cultures and wound consult - ordered a CT without contrast to rule out abscess/osteomyelitis - ordered arterial duplex -monitor CK levels a.m. Mechanical fall without LOC - fall precautions - consider physical therapy if needed Hypertension - continuously monitor blood pressure - hydralazine if SBP more than 160 PUD PPX not indicated DVT PPX Lovenox Cardiac diet Goals of care discussed with the patient for more than 27 minutes: Full code status Case discussed with Dr. Murphy, patient and nurse Plan discussed with: Patient My Orders Orders - MARY PORTILLO RESIDENT Procedure Category Date Status Time Admit ADMIT 10/04/25 Transmitted 11:43 Allergies ANNAMARIE 10/04/25 In Process 11:43 Code Status CODE 10/04/25 Transmitted 11:43 2 Gm Sodium Diet DIET 10/04/25 Transmitted Lunch Sodium Chloride Lock PHA 10/04/25 Logged (Saline Lock Ns) 14:00 Sodium Chloride 0.9% PHA 10/04/25 Logged 11:45 Ondansetron Hcl PHA 10/04/25 Logged (Zofran) 11:45 Enoxaparin Sodium PHA 10/05/25 Logged (Lovenox) 10:00 Complete Blood Count LAB 10/05/25 Verified 04:00 Comprehensive LAB 10/05/25 Verified Metabolic Panel 04:00 Condition: Fair ANNAMARIE 10/04/25 In Process 11:43 Acetaminophen Tablet PHA 10/04/25 Logged (Tylenol Tablet) 11:45 Morphine Sulfate PHA 10/04/25 Logged Injection 11:45 Nitroglycerin PHA 10/04/25 Logged Sublingual (Ntrostat 11:45 Morphine Sulfate PHA 10/04/25 Logged Injection 11:45 Oxygen By Nasal RT 10/04/25 Transmitted Cannula 11:43 Stat Ekg For Chest [facility] 10/04/25 In Process Pain 11:43 Notify Md Of Changes [facility] 10/04/25 In Process From Base 11:43 Curing Room Worker For [facility] 10/04/25 In Process 24 Hours 11:43 Emergency Dysrhythmia [facility] 10/04/25 In Process Protocol 11:43 Rhythm Strips Once [facility] 10/04/25 In Process Every Shift 11:43 B-Type Natriuretic LAB 10/04/25 Logged Peptide 11:43 Wound Culture W/ Gs JIMMY 10/04/25 Logged 11:43 Clean Wound ED NURSING 10/04/25 Transmitted 11:43 * Wound Consult CONS 10/04/25 Transmitted 11:43 Troponin-I Hs LAB 10/04/25 Logged 11:43 Erythrocyte LAB 10/04/25 Logged Sedimentation Rate 11:43 PTPTT LAB 10/04/25 Logged 11:43 Urinalysis LAB 10/04/25 Logged 11:43 Troponin-I Hs LAB 10/04/25 Logged 12:43 Ct L Foot Wo Contrast CT 10/04/25 Logged 11:43 Hydralazine Injection PHA 10/04/25 Logged (Apresoline Inject 12:15 Sodium Chloride 0.9% PHA 10/04/25 Logged 12:15 Clindamycin 600mg Iv PHA 10/04/25 Logged (Cleocin Iv) 14:00 Ceftriaxone 1gm/50ml PHA 10/05/25 Logged (Rocephin) 09:00 Bilat Low Ext Art US 10/04/25 Logged Duplex 12:11 Visit Coding STANDARD RES Billing Provider: ROYCE MURPHY MD Date of Service if different f: Oct 04, 2025 Common Visit Codes: [id number] INP/OBS CARE (HIGH) Secondary Visit Codes: [id number] CARE PLAN 30 MINUTES MARY PORTILLO RESIDENT Oct 04, 2025 12:21 ROYCE MURPHY MD Oct 05, 2025 21:57
[2025-10-04] MEDS ORDERED: MORPHINE SULFATE 4 MG/ML SYR/VIAL IV PRN (13:15)
--- NOTE | 2025-10-04 13:53 | DVH ---
CLINICAL INFORMATION: Rule out osteomyelitis, left lower leg medial aspect tibia. TECHNIQUE: Axial CT images of the left foot were obtained without IV contrast. Coronal and sagittal reformatted images were obtained, reviewed, and stored. 3D reconstructed images were created at an independent workstation with concurrent physician supervision. All CT scans at this medical facility are performed using dose modulation techniques as appropriate to a performed exam including the following: Automated exposure control was utilized; adjustment of the MA and/or KV according to patient size; and use of iterative reconstruction technique. CTDIvol = not provided at the time of dictation. DLP = not provided at the time of dictation. COMPARISON: None. FINDINGS: Chronic appearing fracture of the base of the medial malleolus with callus formation and areas of partial osseous fusion. 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 Prominent spurring at the inferior aspect of the medial malleolus. There is hindfoot valgus malalignment. Severe arthritic changes also noted at the talonavicular joint and cuneonavicular joint with joint space narrowing and subchondral cystic change. There is subcutaneous edema throughout the visualized portions of the distal right lower leg, right ankle, and right foot. No organized fluid collection identified to suggest a bscess, although limited evaluation for abscess on noncontrast enhanced CT. No definite bony destructive changes are seen to suggest osteomyelitis. IMPRESSION: 1. No definite bony destructive changes are seen to suggest osteomyelitis. If there remains clinical suspicion for osteomyelitis, MRI could be obtained. 2. Chronic appearing fracture at the base of the medial malleolus with associated callus formation and areas of partial osseous fusion. 3. Arthritic changes and hindfoot valgus malalignment as described above. 4. Prominent subcutaneous edema, may be seen with cellulitis in the appropriate clinical setting. No organized fluid collection identified to suggest abscess, although limited evaluation for abscess without IV contrast. 5. Additional findings as detailed above.
[2025-10-04 13:58] LABS: INR 1.19 (0.9-1.15); Partial Thromboplastin Time 31.3 SEC (24.5-34.5); Prothrombin Time 12.4 sec (9.3-11.8)
[2025-10-04] MEDS: SODIUM CHLOR 0.9% PF (SALINE LOCK) 10ML VIAL/SYR IV SCH (14:00)
--- NOTE | 2025-10-04 15:40 | DVH ---
BILATERAL LOWER EXTREMITY ARTERIAL DUPLEX ULTRASOUND STUDY: REASON FOR EXAM: peripheral arterial disease TECHNIQUE: The full lengths of the arterial segments were evaluated with color- flow Doppler ultrasound. Suspected abnormalities were evaluated with garcia scale ultrasound. Reading Recovery Teacher spectral Doppler waveforms, with velocity measurements were obtained. Spectral waveforms with velocity measurements were obtained 2 to 4 cm central to any areas of significant stenosis. Common femoral, superficial femoral, popliteal, posterior tibial, anterior tibial, and dorsal pedal arteries were evaluated. FINDINGS: Right: There is diffuse atherosclerotic plaque throughout the right lower extremity. The common femoral artery waveform is multiphasic with a brisk upstroke. The superficial femoral and popliteal arteries are patent with multiphasic waveforms. The posterior tibial, anterior tibial, and dorsalis pedis arteries are patent with multiphasic waveforms. Left: There is diffuse atherosclerotic plaque throughout the left lower extremity. The common femoral artery waveform is multiphasic with a brisk upstroke. The superficial femoral and popliteal arteries are patent with multiphasic waveforms. The posterior tibial, anterior tibial, and dorsal pedal arteries are patent with monophasic waveforms. IMPRESSION: Bilateral lower extremity atherosclerotic disease, left worse than right. No focal stenosis or occlusion is identified.
[2025-10-04] MEDS: SODIUM CHLORIDE 0.9% 2,350 ML IV ONE (16:45)
[2025-10-04] MEDS: CLINDAMYCIN 600MG IV 50 ML IV ONE (16:45)
[2025-10-04] MEDS: CLINDAMYCIN 600MG IV 50 ML IV SCH (16:46)
[2025-10-04] MEDS ORDERED: ATOR10TA52 PO (18:19)
[2025-10-04] MEDS ORDERED: HYDR-4072 (18:19)
[2025-10-04] MEDS ORDERED: ALLO300T2 PO (18:19)
[2025-10-04 18:55] VITALS: PULSE 91; RESP 16; O2SAT 96
[2025-10-04 20:00] VITALS: PULSE 92; RESP 20; O2SAT 94
[2025-10-04] MEDS ORDERED: LOSA-535 PO (20:07)
[2025-10-04 21:00] VITALS: BP 147/72; PULSE 92; RESP 20; TEMP 98.2; O2SAT 94
[2025-10-04] MEDS: SODIUM CHLORIDE 0.9% 1,000 ML IV SCH (21:12)
[2025-10-04] MEDS: ACETAMINOPHEN 325 MG TAB PO PRN (21:56)
[2025-10-05 01:00] VITALS: BP 100/64; PULSE 74; RESP 16; TEMP 97.9; O2SAT 98
[2025-10-05 05:00] VITALS: BP 158/65; PULSE 69; RESP 16; TEMP 97.7; O2SAT 96
[2025-10-05 05:46] LABS: Hematocrit 42.7 % (41.0-53.0); Hemoglobin 14.2 g/dL (13.5-17.5); Mean Corpuscular Hemoglobin 27.4 pg (28.0-32.0); Mean Corpuscular Volume 82.4 fL (80.0-100.0); Nucleated Red Blood Cells % 0.0 %
[2025-10-05 06:51] LABS: Anion Gap 8 (5-15); BUN/Creatinine Ratio 18.9 (10.0-20.0); Blood Urea Nitrogen 21 mg/dL (9-23); Carbon Dioxide 22 mmol/L (20-31); Glucose 88 mg/dL (74-106); Total Protein 6.4 g/dL (5.7-8.2)
[2025-10-05 06:53] LABS: Albumin 3.4 g/dL (3.2-4.8); Bilirubin, Total 0.5 mg/dL (0.2-1.0)
[2025-10-05 06:59] LABS: Alkaline Phosphatase 73 U/L (46-116); Chloride 108 mmol/L (98-107); Potassium 3.9 mmol/L (3.5-5.1); Sodium 138 mmol/L (136-145)
[2025-10-05 07:00] LABS: Alanine Aminotransferase 61 U/L (7-40); Calcium 8.5 mg/dL (8.7-10.4)
[2025-10-05] MEDS: ENOXAPARIN SOD 40 MG/0.4 ML SYRINGE SC SCH (08:42)
[2025-10-05] MEDS ORDERED: SOLI10TA39 PO (15:34)
[2025-10-05 17:10] VITALS: BP 171/90; PULSE 87; RESP 18; TEMP 98.7; O2SAT 95
--- NOTE | 2025-10-05 17:11 | DVHPN2 ---
Subjective Left leg cellulitis Sepsis Changes from previous H/P or p: Changes Objective Vitals Vital Signs Date Time Temp Pulse Resp B/P (MAP) Pulse Ox O2 Delivery O2 Flow Rate FiO2 10/05/25 05:00 97.7 69 16 158/65 (96) 96 97.7 10/04/25 20:00 Room Air* 0 21 Intake/Output Intake and Output 10/05/25 07:00 Intake Total 650 ml Output Total 650 ml Balance 0 ml Intake Oral 600 ml IV Total 50 ml Output Urine Total 650 ml General Appearance: Alert, Oriented X3, Cooperative, No acute distress Lungs: Clear to auscultation, Normal air movement Cardiovascular: Regular rate, Normal S1, Normal S2 Abdomen: Normal bowel sounds, Soft, No tenderness Extremities: Other (Left leg 2+ edema with erythema) Medications Current Medications Medications Dose Ordered Sig/Ilsa Route Start Time Stop Time Status Last Admin Dose Admin Sodium Chloride 10 ml Q8HR IV 10/04/25 14:00 10/05/25 14:00 10 ML Sodium Chloride 1,000 ml @ 60 mls/hr [id number] IV 10/04/25 13:40 10/04/25 21:12 60 MLS/HR Ondansetron HCl 4 mg Q4HP PRN IV 10/04/25 11:45 Enoxaparin Sodium 40 mg DAILY SC 10/05/25 10:00 10/05/25 08:42 40 MG Acetaminophen 650 mg Q6HP PRN PO 10/04/25 11:45 10/05/25 04:16 650 MG Morphine Sulfate 2 mg Q4HPRN PRN IV 10/04/25 13:15 Nitroglycerin 0.4 mg Q5MINP PRN SL 10/04/25 11:45 Morphine Sulfate 2 mg Q30M PRN IV 10/04/25 13:15 Hydralazine HCl 10 mg Q6HP PRN IV 10/04/25 12:15 Clindamycin Phosphate 50 ml @ 50 mls/hr Q8HR IV 10/04/25 14:00 10/05/25 15:17 50 MLS/HR Ceftriaxone Sodium 50 ml @ 100 mls/hr DAILY@09 IV 10/05/25 09:00 10/05/25 08:41 100 MLS/HR Laboratory Results Laboratory Tests 10/05/25 05:05 Chemistry Test 10/05/25 05:05 Albumin 3.4 g/dL (3.2-4.8) Calcium Level 8.5 mg/dL (8.7-10.4) L Total Protein 6.4 g/dL (5.7-8.2) LFT Test 10/05/25 05:05 Alanine Aminotransferase (ALT) 61 U/L (7-40) H Alkaline Phosphatase 73 U/L (46-116) Aspartate Amino Transferase (AST) 98 U/L (13-40) H Total Bilirubin 0.5 mg/dL (0.2-1.0) Urinalysis Test 10/04/25 11:45 Urine Color Light-yellow (Yellow) Urine Clarity Clear (Clear) Urine pH 5.5 (5.0-9.0) Urine Specific [place]lick 1.015 (1.001-1.035) Urine Protein 1+ (Negative) H Urine Ketones Negative (Negative) Urine Blood 1+ /uL (Negative) H Urine Nitrite Negative (Negative) Urine Bilirubin Negative (Negative) Urine Urobilinogen Normal mg/dL (Negative) Urine Leukocyte Esterase Negative /uL (Negative) Urine RBC 2 /hpf (0 - 3) Urine Microscopic WBC 1 /HPF (0-3) Urine Squamous Epithelial Cells Few /hpf (<5) Urine Bacteria Few /hpf (None Seen) H Urine Mucus Few (None Seen) Urine Glucose Normal mg/dL (Normal) Microbiology Microbiology Date/Time Source Procedure Growth Status 10/04/25 10:05 Blood Blood Culture - Preliminary NO GROWTH AFTER 24 HOURS OF INCUBATION. Resulted Assessment/Plan Assessment/Plan LLE cellulitis Sepsis due to above NSTEMI Type II HTN PLAN: Rocephin Clindamycin Lovenox Hydralazine prn Full code Plan discussed with: Patient My Orders Orders - JOELLE WILSON MD Procedure Category Date Status Time Apply: [facility] 10/05/25 In Process 13:45 Date of Service: Oct 05, 2025 Billing Provider: JOELLE WILSON MD Common Visit Codes: [id number] INP/OBS CARE(HIGH) JOELLE WILSON MD Oct 05, 2025 17:11
[2025-10-05 19:40] VITALS: BP 168/90; PULSE 86; RESP 18; TEMP 97.2; O2SAT 93
[2025-10-05 20:00] VITALS: PULSE 86; RESP 18; O2SAT 93
[2025-10-05 21:00] VITALS: BP 134/70; PULSE 86; RESP 18; TEMP 97.2; O2SAT 93
[2025-10-06] VITALS (7 sets, daily range): BP systolic 148–164; BP diastolic 83–92; PULSE 77–86; RESP 16–20; TEMP 97.2–98.3; O2SAT 93–96
[2025-10-06] MEDS: hydrALAZINE HCL 20 MG/ML VL IV PRN (05:04)
[2025-10-06] MEDS: MORPHINE SULFATE 4 MG/ML SYR/VIAL IV PRN (05:28)
[2025-10-06 06:56] LABS: Hematocrit 43.5 % (41.0-53.0); Hemoglobin 14.6 g/dL (13.5-17.5); Mean Corpuscular Hemoglobin 27.3 pg (28.0-32.0); Mean Corpuscular Volume 81.3 fL (80.0-100.0); Nucleated Red Blood Cells % 0.0 %
[2025-10-06 07:23] LABS: Albumin 3.6 g/dL (3.2-4.8); Alkaline Phosphatase 70 U/L (46-116); Anion Gap 10 (5-15); BUN/Creatinine Ratio 21.6 (10.0-20.0); Blood Urea Nitrogen 21 mg/dL (9-23); Calcium 8.9 mg/dL (8.7-10.4); Carbon Dioxide 22 mmol/L (20-31); Glucose 90 mg/dL (74-106); Magnesium 2.3 mg/dL (1.6-2.6); Potassium 4.1 mmol/L (3.5-5.1); Sodium 141 mmol/L (136-145); Total Protein 6.5 g/dL (5.7-8.2)
[2025-10-06 07:24] LABS: Bilirubin, Total 0.4 mg/dL (0.2-1.0)
[2025-10-06 07:25] LABS: Alanine Aminotransferase 74 U/L (7-40); Chloride 109 mmol/L (98-107)
--- NOTE | 2025-10-06 11:24 | DVHPN2 ---
Subjective Better Less edema and less erythema Changes from previous H/P or p: Changes Objective Vitals Vital Signs Date Time Temp Pulse Resp B/P (MAP) Pulse Ox O2 Delivery O2 Flow Rate FiO2 10/06/25 09:00 97.8 79 19 158/89 (112) 96 97.8 10/05/25 20:00 Room Air* 0 21 Intake/Output Intake and Output 10/06/25 07:00 Intake Total 3700 ml Output Total 440 ml Balance 3260 ml Intake Oral 3500 ml IV Total 200 ml Output Urine Total 440 ml General Appearance: Alert, Oriented X3, Cooperative, No acute distress Lungs: Clear to auscultation, Normal air movement Cardiovascular: Regular rate, Normal S1, Normal S2 Abdomen: Normal bowel sounds, Soft, No tenderness Extremities: Other (Left leg 2+ edema with erythema) Medications Current Medications Medications Dose Ordered Sig/Ilsa Route Start Time Stop Time Status Last Admin Dose Admin Sodium Chloride 10 ml Q8HR IV 10/04/25 14:00 10/06/25 05:03 10 ML Ondansetron HCl 4 mg Q4HP PRN IV 10/04/25 11:45 Enoxaparin Sodium 40 mg DAILY SC 10/05/25 10:00 10/06/25 08:38 40 MG Acetaminophen 650 mg Q6HP PRN PO 10/04/25 11:45 10/05/25 04:16 650 MG Morphine Sulfate 2 mg Q4HPRN PRN IV 10/04/25 13:15 10/06/25 05:28 2 MG Nitroglycerin 0.4 mg Q5MINP PRN SL 10/04/25 11:45 Morphine Sulfate 2 mg Q30M PRN IV 10/04/25 13:15 Hydralazine HCl 10 mg Q6HP PRN IV 10/04/25 12:15 10/06/25 05:04 10 MG Clindamycin Phosphate 50 ml @ 50 mls/hr Q8HR IV 10/04/25 14:00 10/06/25 05:03 50 MLS/HR Ceftriaxone Sodium 50 ml @ 100 mls/hr DAILY@09 IV 10/05/25 09:00 10/06/25 08:34 100 MLS/HR Laboratory Results Laboratory Tests 10/06/25 05:44 Chemistry Test 10/06/25 05:44 Albumin 3.6 g/dL (3.2-4.8) Calcium Level 8.9 mg/dL (8.7-10.4) Magnesium Level 2.3 mg/dL (1.6-2.6) Total Protein 6.5 g/dL (5.7-8.2) LFT Test 10/06/25 05:44 Alanine Aminotransferase (ALT) 74 U/L (7-40) H Alkaline Phosphatase 70 U/L (46-116) Aspartate Amino Transferase (AST) 80 U/L (13-40) H Total Bilirubin 0.4 mg/dL (0.2-1.0) Urinalysis Test 10/04/25 11:45 Urine Color Light-yellow (Yellow) Urine Clarity Clear (Clear) Urine pH 5.5 (5.0-9.0) Urine Specific [place] 1.015 (1.001-1.035) Urine Protein 1+ (Negative) H Urine Ketones Negative (Negative) Urine Blood 1+ /uL (Negative) H Urine Nitrite Negative (Negative) Urine Bilirubin Negative (Negative) Urine Urobilinogen Normal mg/dL (Negative) Urine Leukocyte Esterase Negative /uL (Negative) Urine RBC 2 /hpf (0 - 3) Urine Microscopic WBC 1 /HPF (0-3) Urine Squamous Epithelial Cells Few /hpf (<5) Urine Bacteria Few /hpf (None Seen) H Urine Mucus Few (None Seen) Urine Glucose Normal mg/dL (Normal) Microbiology Microbiology Date/Time Source Procedure Growth Status 10/04/25 10:05 Blood Blood Culture - Preliminary NO GROWTH AFTER 48 HOURS OF INCUBATION. Resulted Assessment/Plan Assessment/Plan LLE cellulitis Sepsis due to above NSTEMI Type II HTN PLAN: Rocephin Clindamycin Lovenox Hydralazine prn Full code 10/06/2025: Continue IV antibiotics The patient is looking better He feels better Less edema Less erythema One more day on IV antibiotics in the hospital discharge home possibly in the morning Plan discussed with: Patient My Orders Orders - JOELLE WILSON MD Procedure Category Date Status Time Apply: ANNAMARIE 10/05/25 In Process 13:45 Date of Service: Oct 06, 2025 Billing Provider: JOELLE WILSON MD Common Visit Codes: [id number] INP/OBS CARE(HIGH) JOELLE WILSON MD Oct 06, 2025 11:24
[2025-10-07] VITALS (7 sets, daily range): BP systolic 142–183; BP diastolic 72–93; PULSE 76–89; RESP 15–22; TEMP 97.9–98.6; O2SAT 91–97
--- NOTE | 2025-10-07 18:16 | DVHPN2 ---
Subjective Better Less edema and less erythema c/o weakness Changes from previous H/P or p: Changes Objective Vitals Vital Signs Date Time Temp Pulse Resp B/P (MAP) Pulse Ox O2 Delivery O2 Flow Rate FiO2 10/07/25 17:00 98.6 79 18 159/72 (101) 97 98.6 10/07/25 07:50 Room Air* 0 21 Intake/Output Intake and Output 10/07/25 07:00 Intake Total 1645 ml Output Total 1400 ml Balance 245 ml Intake Oral 1645 ml Output Urine Total 1400 ml General Appearance: Alert, Oriented X3, Cooperative, No acute distress Lungs: Clear to auscultation, Normal air movement Cardiovascular: Regular rate, Normal S1, Normal S2 Abdomen: Normal bowel sounds, Soft, No tenderness Extremities: Other (Left leg 2+ edema with erythema) Medications Current Medications Medications Dose Ordered Sig/Ilsa Route Start Time Stop Time Status Last Admin Dose Admin Sodium Chloride 10 ml Q8HR IV 10/04/25 14:00 10/07/25 05:12 10 ML Ondansetron HCl 4 mg Q4HP PRN IV 10/04/25 11:45 Enoxaparin Sodium 40 mg DAILY SC 10/05/25 10:00 10/07/25 08:52 40 MG Acetaminophen 650 mg Q6HP PRN PO 10/04/25 11:45 10/05/25 04:16 650 MG Morphine Sulfate 2 mg Q4HPRN PRN IV 10/04/25 13:15 10/07/25 13:16 2 MG Nitroglycerin 0.4 mg Q5MINP PRN SL 10/04/25 11:45 Morphine Sulfate 2 mg Q30M PRN IV 10/04/25 13:15 Hydralazine HCl 10 mg Q6HP PRN IV 10/04/25 12:15 10/07/25 05:27 10 MG Clindamycin Phosphate 50 ml @ 50 mls/hr Q8HR IV 10/04/25 14:00 10/07/25 13:16 50 MLS/HR Ceftriaxone Sodium 50 ml @ 100 mls/hr DAILY@09 IV 10/05/25 09:00 10/07/25 08:52 100 MLS/HR Laboratory Results Laboratory Tests 10/06/25 05:44 Urinalysis Test 10/04/25 11:45 Urine Color Light-yellow (Yellow) Urine Clarity Clear (Clear) Urine pH 5.5 (5.0-9.0) Urine Specific [place] 1.015 (1.001-1.035) Urine Protein 1+ (Negative) H Urine Ketones Negative (Negative) Urine Blood 1+ /uL (Negative) H Urine Nitrite Negative (Negative) Urine Bilirubin Negative (Negative) Urine Urobilinogen Normal mg/dL (Negative) Urine Leukocyte Esterase Negative /uL (Negative) Urine RBC 2 /hpf (0 - 3) Urine Microscopic WBC 1 /HPF (0-3) Urine Squamous Epithelial Cells Few /hpf (<5) Urine Bacteria Few /hpf (None Seen) H Urine Mucus Few (None Seen) Urine Glucose Normal mg/dL (Normal) Microbiology Microbiology Date/Time Source Procedure Growth Status 10/04/25 10:05 Blood Blood Culture - Preliminary NO GROWTH AFTER 72 HOURS OF INCUBATION. Resulted Assessment/Plan Assessment/Plan LLE cellulitis Sepsis due to above NSTEMI Type II HTN PLAN: Rocephin Clindamycin Lovenox Hydralazine prn Full code 10/06/2025: Continue IV antibiotics The patient is looking better He feels better Less edema Less erythema One more day on IV antibiotics in the hospital discharge home possibly in the morning 10/07/25: Continue IV antibiotics Physical therapy recommends SNF Consult social service for SNF Plan discussed with: Patient, Spouse Date of Service: Oct 07, 2025 Billing Provider: JOELLE WILSON MD Common Visit Codes: [id number] INP/OBS CARE(HIGH) JOELLE WILSON MD Oct 07, 2025 18:16
[2025-10-08] VITALS (7 sets, daily range): BP systolic 114–174; BP diastolic 73–88; PULSE 74–89; RESP 16–17; TEMP 97.1–98.7; O2SAT 91–95
[2025-10-08 07:17] LABS: Hematocrit 43.2 % (41.0-53.0); Hemoglobin 14.2 g/dL (13.5-17.5); Mean Corpuscular Hemoglobin 27.0 pg (28.0-32.0); Mean Corpuscular Volume 81.9 fL (80.0-100.0); Nucleated Red Blood Cells % 0.0 %
[2025-10-08 07:41] LABS: Alkaline Phosphatase 72 U/L (46-116); Anion Gap 9 (5-15); BUN/Creatinine Ratio 16.1 (10.0-20.0); Blood Urea Nitrogen 14 mg/dL (9-23); Calcium 8.9 mg/dL (8.7-10.4); Carbon Dioxide 24 mmol/L (20-31); Chloride 106 mmol/L (98-107); Glucose 97 mg/dL (74-106); Magnesium 2.2 mg/dL (1.6-2.6); Potassium 4.3 mmol/L (3.5-5.1); Sodium 139 mmol/L (136-145); Total Protein 6.6 g/dL (5.7-8.2)
[2025-10-08 07:42] LABS: Albumin 3.6 g/dL (3.2-4.8); Bilirubin, Total 0.6 mg/dL (0.2-1.0)
[2025-10-08 07:43] LABS: Alanine Aminotransferase 56 U/L (7-40)
--- NOTE | 2025-10-08 14:01 | DVH ---
X-ray left knee Technique: AP and lateral views REASON FOR EXAM: fall FINDINGS: No fractures or dislocations. There is medial, lateral and patellofemoral joint space narrowing with osteophyte formation. No joint effusion IMPRESSION: 1. Tricompartmental osteoarthritic change. No acute bony pathology
--- NOTE | 2025-10-08 14:02 | DVH ---
X-ray right knee Technique: AP and lateral views REASON FOR EXAM: fall FINDINGS: Intact well-aligned knee prosthesis. No fractures of the distal femur or proximal tibia or fibula. No joint effusion IMPRESSION: 1. No acute bony pathology
--- NOTE | 2025-10-08 18:20 | DVHPN2 ---
Subjective Better Less edema and less erythema c/o weakness Changes from previous H/P or p: Changes Objective Vitals Vital Signs Date Time Temp Pulse Resp B/P (MAP) Pulse Ox O2 Delivery O2 Flow Rate FiO2 10/08/25 16:58 98.7 87 16 165/81 (109) 94 98.7 10/08/25 08:00 Room Air* 0 21 Intake/Output Intake and Output 10/08/25 07:00 Intake Total 1380 ml Balance 1380 ml Intake Oral 1380 ml # Voids 7 # Bowel Movements 2 General Appearance: Alert, Oriented X3, Cooperative, No acute distress Lungs: Clear to auscultation, Normal air movement Cardiovascular: Regular rate, Normal S1, Normal S2 Abdomen: Normal bowel sounds, Soft, No tenderness Extremities: Other (Left leg 2+ edema with erythema) Medications Current Medications Medications Dose Ordered Sig/Ilsa Route Start Time Stop Time Status Last Admin Dose Admin Sodium Chloride 10 ml Q8HR IV 10/04/25 14:00 10/08/25 14:47 10 ML Ondansetron HCl 4 mg Q4HP PRN IV 10/04/25 11:45 Enoxaparin Sodium 40 mg DAILY SC 10/05/25 10:00 10/08/25 09:55 40 MG Acetaminophen 650 mg Q6HP PRN PO 10/04/25 11:45 10/05/25 04:16 650 MG Morphine Sulfate 2 mg Q4HPRN PRN IV 10/04/25 13:15 10/08/25 14:50 2 MG Nitroglycerin 0.4 mg Q5MINP PRN SL 10/04/25 11:45 Morphine Sulfate 2 mg Q30M PRN IV 10/04/25 13:15 Hydralazine HCl 10 mg Q6HP PRN IV 10/04/25 12:15 10/07/25 05:27 10 MG Clindamycin Phosphate 50 ml @ 50 mls/hr Q8HR IV 10/04/25 14:00 10/08/25 14:47 50 MLS/HR Ceftriaxone Sodium 50 ml @ 100 mls/hr DAILY@09 IV 10/05/25 09:00 10/08/25 09:23 100 MLS/HR Laboratory Results Laboratory Tests 10/08/25 06:21 Chemistry Test 10/08/25 06:21 Albumin 3.6 g/dL (3.2-4.8) Calcium Level 8.9 mg/dL (8.7-10.4) Magnesium Level 2.2 mg/dL (1.6-2.6) Total Protein 6.6 g/dL (5.7-8.2) LFT Test 10/08/25 06:21 Alanine Aminotransferase (ALT) 56 U/L (7-40) H Alkaline Phosphatase 72 U/L (46-116) Aspartate Amino Transferase (AST) 40 U/L (13-40) Total Bilirubin 0.6 mg/dL (0.2-1.0) Urinalysis Test 10/04/25 11:45 Urine Color Light-yellow (Yellow) Urine Clarity Clear (Clear) Urine pH 5.5 (5.0-9.0) Urine Specific [place] 1.015 (1.001-1.035) Urine Protein 1+ (Negative) H Urine Ketones Negative (Negative) Urine Blood 1+ /uL (Negative) H Urine Nitrite Negative (Negative) Urine Bilirubin Negative (Negative) Urine Urobilinogen Normal mg/dL (Negative) Urine Leukocyte Esterase Negative /uL (Negative) Urine RBC 2 /hpf (0 - 3) Urine Microscopic WBC 1 /HPF (0-3) Urine Squamous Epithelial Cells Few /hpf (<5) Urine Bacteria Few /hpf (None Seen) H Urine Mucus Few (None Seen) Urine Glucose Normal mg/dL (Normal) Microbiology Microbiology Date/Time Source Procedure Growth Status 10/04/25 10:05 Blood Blood Culture - Preliminary NO GROWTH AFTER 72 HOURS OF INCUBATION. Resulted Assessment/Plan Assessment/Plan LLE cellulitis Sepsis due to above NSTEMI Type II HTN PLAN: Rocephin Clindamycin Lovenox Hydralazine prn Full code 10/06/2025: Continue IV antibiotics The patient is looking better He feels better Less edema Less erythema One more day on IV antibiotics in the hospital discharge home possibly in the morning 10/07/25: Continue IV antibiotics Physical therapy recommends SNF Consult social service for SNF 10/08/25: Arrange SNF Plan discussed with: Patient, Spouse My Orders Orders - JOELLE WILSON MD Procedure Category Date Status Time R Knee 2v Xray XY 10/08/25 Resulted 11:25 L Knee 2v Xray XY 10/08/25 Resulted 11:25 Date of Service: Oct 08, 2025 Billing Provider: JOELLE WILSON MD Common Visit Codes: [id number] INP/OBS CARE(HIGH) JOELLE WILSON MD Oct 08, 2025 18:20
[2025-10-09] VITALS (8 sets, daily range): BP systolic 96–155; BP diastolic 48–79; PULSE 75–88; RESP 17–18; TEMP 97.3–99.1; O2SAT 93–96
--- NOTE | 2025-10-09 13:51 | DVHPN2 ---
Subjective No new complaints Changes from previous H/P or p: Changes Objective Vitals Vital Signs Date Time Temp Pulse Resp B/P (MAP) Pulse Ox O2 Delivery O2 Flow Rate FiO2 10/09/25 12:26 86 22 154/76 10/09/25 08:58 97.6 95 97.6 10/08/25 20:00 Room Air* 0 21 Intake/Output Intake and Output 10/09/25 07:00 Intake Total 1700 ml Balance 1700 ml Intake Oral 1500 ml IV Total 200 ml # Voids 3 # Bowel Movements 2 General Appearance: Alert, Oriented X3, Cooperative, No acute distress Lungs: Clear to auscultation, Normal air movement Cardiovascular: Regular rate, Normal S1, Normal S2 Abdomen: Normal bowel sounds, Soft, No tenderness Extremities: Other (Left leg 2+ edema with erythema) Medications Current Medications Medications Dose Ordered Sig/Ilsa Route Start Time Stop Time Status Last Admin Dose Admin Sodium Chloride 10 ml Q8HR IV 10/04/25 14:00 10/09/25 05:49 10 ML Ondansetron HCl 4 mg Q4HP PRN IV 10/04/25 11:45 Enoxaparin Sodium 40 mg DAILY SC 10/05/25 10:00 10/09/25 10:00 40 MG Acetaminophen 650 mg Q6HP PRN PO 10/04/25 11:45 10/05/25 04:16 650 MG Morphine Sulfate 2 mg Q4HPRN PRN IV 10/04/25 13:15 10/09/25 12:26 2 MG Nitroglycerin 0.4 mg Q5MINP PRN SL 10/04/25 11:45 Morphine Sulfate 2 mg Q30M PRN IV 10/04/25 13:15 Hydralazine HCl 10 mg Q6HP PRN IV 10/04/25 12:15 10/07/25 05:27 10 MG Clindamycin Phosphate 50 ml @ 50 mls/hr Q8HR IV 10/04/25 14:00 10/09/25 05:48 50 MLS/HR Ceftriaxone Sodium 50 ml @ 100 mls/hr DAILY@09 IV 10/05/25 09:00 10/09/25 09:00 100 MLS/HR Laboratory Results Laboratory Tests 10/08/25 06:21 Urinalysis Test 10/04/25 11:45 Urine Color Light-yellow (Yellow) Urine Clarity Clear (Clear) Urine pH 5.5 (5.0-9.0) Urine Specific [place] 1.015 (1.001-1.035) Urine Protein 1+ (Negative) H Urine Ketones Negative (Negative) Urine Blood 1+ /uL (Negative) H Urine Nitrite Negative (Negative) Urine Bilirubin Negative (Negative) Urine Urobilinogen Normal mg/dL (Negative) Urine Leukocyte Esterase Negative /uL (Negative) Urine RBC 2 /hpf (0 - 3) Urine Microscopic WBC 1 /HPF (0-3) Urine Squamous Epithelial Cells Few /hpf (<5) Urine Bacteria Few /hpf (None Seen) H Urine Mucus Few (None Seen) Urine Glucose Normal mg/dL (Normal) Microbiology Microbiology Date/Time Source Procedure Growth Status 10/04/25 10:05 Blood Blood Culture - Final NO GROWTH AFTER 5 DAYS OF INCUBATION. Complete Assessment/Plan Assessment/Plan LLE cellulitis Sepsis due to above NSTEMI Type II HTN PLAN: Rocephin Clindamycin Lovenox Hydralazine prn Full code 10/06/2025: Continue IV antibiotics The patient is looking better He feels better Less edema Less erythema One more day on IV antibiotics in the hospital discharge home possibly in the morning 10/07/25: Continue IV antibiotics Physical therapy recommends SNF Consult social service for SNF 10/08/25: Arrange SNF 10/09/2025: Continue the current management with IV antibiotics Continue physical therapy The patient needs to go to SNF for rehab Plan discussed with: Patient Date of Service: Oct 09, 2025 Billing Provider: JOELLE WILSON MD Common Visit Codes: [id number] INP/OBS CARE(HIGH) JOELLE WILSON MD Oct 09, 2025 13:51
[2025-10-10] VITALS (7 sets, daily range): BP systolic 132–152; BP diastolic 58–84; PULSE 78–92; RESP 16–20; TEMP 95.4–98.3; O2SAT 95–98
[2025-10-10 07:16] LABS: Hematocrit 42.6 % (41.0-53.0); Hemoglobin 14.0 g/dL (13.5-17.5); Mean Corpuscular Hemoglobin 27.1 pg (28.0-32.0); Mean Corpuscular Volume 82.5 fL (80.0-100.0); Nucleated Red Blood Cells % 0.1 %
[2025-10-10 07:35] LABS: Albumin 3.6 g/dL (3.2-4.8); Alkaline Phosphatase 73 U/L (46-116); Anion Gap 8 (5-15); BUN/Creatinine Ratio 18.4 (10.0-20.0); Blood Urea Nitrogen 16 mg/dL (9-23); Calcium 8.7 mg/dL (8.7-10.4); Carbon Dioxide 23 mmol/L (20-31); Chloride 105 mmol/L (98-107); Glucose 101 mg/dL (74-106); Magnesium 2.2 mg/dL (1.6-2.6); Potassium 4.5 mmol/L (3.5-5.1); Sodium 136 mmol/L (136-145); Total Protein 6.6 g/dL (5.7-8.2)
[2025-10-10 07:36] LABS: Bilirubin, Total 0.5 mg/dL (0.2-1.0)
[2025-10-10 07:40] LABS: Alanine Aminotransferase 50 U/L (7-40)
--- NOTE | 2025-10-10 16:02 | DVHDS2 ---
Discharge Summary Date of Admission Oct 04, 2025 at 11:43 Date of Discharge: Oct 10, 2025 Labs/Diagnostic Data: Laboratory Results Test 10/10/25 06:33 10/04/25 20:19 10/04/25 12:52 10/04/25 11:45 White Blood Count 19.3 10^3/uL (4.4-10.8) Red Blood Count 5.17 10^6/uL (4.5-5.90) Hemoglobin 14.0 g/dL (13.5-17.5) Hematocrit 42.6 % (41.0-53.0) Mean Corpuscular Volume 82.5 fL (80.0-100.0) Mean Corpuscular Hemoglobin 27.1 pg (28.0-32.0) Mean Corpuscular Hemoglobin Concent 32.9 g/dL (32.0-36.0) Red Cell Distribution Width 14.3 % (11.8-14.3) Platelet Count 375 10^3/uL (140-450) Mean Platelet Volume 7.4 fL (6.9-10.8) Neutrophils (%) (Auto) 74.5 % (37.0-80.0) Lymphocytes (%) (Auto) 6.9 % (10.0-50.0) Monocytes (%) (Auto) 16.1 % (0.0-12.0) Eosinophils (%) (Auto) 2.1 % (0.0-7.0) Basophils (%) (Auto) 0.4 % (0.0-2.0) Neutrophils # (Auto) 14.4 10 ^3/uL (1.6-8.6) Lymphocytes # (Auto) 1.3 10 ^3/uL (0.4-5.4) Monocytes # (Auto) 3.1 10 ^3/uL (0-1.3) Eosinophils # (Auto) 0.4 10 ^3/uL (0-0.8) Basophils # (Auto) 0.1 10 ^3/uL (0-0.2) Nucleated Red Blood Cells 0.1 % Sodium Level 136 mmol/L (136-145) Potassium Level 4.5 mmol/L (3.5-5.1) Chloride Level 105 mmol/L (98-107) Carbon Dioxide Level 23 mmol/L (20-31) Anion Gap 8 (5-15) Blood Urea Nitrogen 16 mg/dL (9-23) Creatinine 0.87 mg/dL (0.700-1.30) Glomerular Filtration Rate Calc 88 mL/min (>90) BUN/Creatinine Ratio 18.4 (10.0-20.0) Serum Glucose 101 mg/dL (74-106) Calcium Level 8.7 mg/dL (8.7-10.4) Magnesium Level 2.2 mg/dL (1.6-2.6) Total Bilirubin 0.5 mg/dL (0.2-1.0) Aspartate Amino Transferase (AST) 38 U/L (13-40) Alanine Aminotransferase (ALT) 50 U/L (7-40) Alkaline Phosphatase 73 U/L (46-116) Total Protein 6.6 g/dL (5.7-8.2) Albumin 3.6 g/dL (3.2-4.8) Troponin I High Sensitivity 270 ng/L (</=54) Prothrombin Time 12.4 sec (9.3-11.8) Prothrombin Time INR 1.19 (0.9-1.15) Activated Partial Thromboplast Time 31.3 SEC (24.5-34.5) Urine Color Light-yellow (Yellow) Urine Clarity Clear (Clear) Urine pH 5.5 (5.0-9.0) Urine Specific [place] 1.015 (1.001-1.035) Urine Protein 1+ (Negative) Urine Ketones Negative (Negative) Urine Blood 1+ /uL (Negative) Urine Nitrite Negative (Negative) Urine Bilirubin Negative (Negative) Urine Urobilinogen Normal mg/dL (Negative) Urine Leukocyte Esterase Negative /uL (Negative) Urine RBC 2 /hpf (0 - 3) Urine Microscopic WBC 1 /HPF (0-3) Urine Squamous Epithelial Cells Few /hpf (<5) Urine Bacteria Few /hpf (None Seen) Urine Mucus Few (None Seen) Urine Glucose Normal mg/dL (Normal) Test 10/04/25 10:05 10/04/25 07:33 Lactic Acid Level 1.6 mmol/L (0.4-2.0) Differential Total Cells Counted 100.0 (100) Neutrophils % (Manual) 83 (37.0-80.0) Band Neutrophils % (Manual) 0 Lymphocytes % (Manual) 7 (10.0-50.0) Monocytes % (Manual) 10 (0-12) Eosinophils % (Manual) 0 (0-7) Basophils % (Manual) 0 (0.0-2.0) Metamyelocytes % (manual) 0 Myelocytes % (Manual) 0 Promyelocytes % (Manual) 0 Blast Cells % (Manual) 0 Reactive Lymphocytes 0 Platelet Estimate Adequate Erythrocyte Sedimentation Rate 33 mm/hr (0-20) Creatine Kinase 1383 U/L (46-171) B-Type Natriuretic Peptide 119.67 pg/mL (0-100) Other Laboratory Tests 10/10/25 06:33 Brief Hx & Hospital Course: Final diagnoses: LLE cellulitis Sepsis due to above NSTEMI Type II HTN Generalized weakness Osteoarthritis of the left knee He was initially admitted for cellulitis in the swelling and edema in his left leg He was given IV antibiotics in his edema and pain improved however he generalized weakness did not He was complaining of pain in his bilateral knees, x-rays shows osteoarthritis of the left knee, 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 Physical therapy saw the patient recommended [facility] due to severe generalized weakness The patient is accepted at [facility], discharge to SNF once a bed is available Continue Augmentin for 5 days for the left leg cellulitis Condition at Discharge: Stable Final Diagnosis/Problems List LLE cellulitis Sepsis due to above NSTEMI Type II HTN Generalized weakness Discharge Disposition: Care Home Facility SNF Discharge Will this Physician continue t: No Discharge Instruct/Medications Diet: Cardiac 2g Na,low cholest Activity: No Restrictions, As Tolerated Follow Up/Referral: Dr. Sears Medications: See the med rec reconciliation Scheduled Allopurinol (Allopurinol), 1 TAB PO DAILY, (Reported) Atorvastatin Calcium (Atorvastatin Calcium), 1 TAB PO DAILY, (Reported) Losartan Potassium (Losartan Potassium), 1 TAB PO DAILY, (Reported) Miscellaneous Medications Hydrocodone-Acetaminophen (Hydrocodone/Acetaminophen 10-325 mg), (Reported) Solifenacin Succinate (Solifenacin Succinate), 10 MG PO, (Reported) Discharge Statement: "Patient was advised to return to the ER or call 911 if any headaches, dizziness, shortness of breath, chest pain, abdominal pain, bleeding, fevers, or worsening of medical condition. Patient was counseled about treatment plan, medications, possible side effects, patientverbalized understanding. All questions were answered to the best of my ability. This discharge took greater then 30 minutes in planning, reviewing documentation, counseling the patient, and discussing with other team members." ASSESSMENT ASSESSMENT Assessment LLE cellulitis Sepsis due to above NSTEMI Type II HTN Generalized weakness Date of Service: Oct 10, 2025 Billing Provider: JOELLE WILSON MD Common Visit Codes: [id number] DISCH DAY >30min JOELLE WILSON MD Oct 10, 2025 16:02
[2025-10-10] MEDS: HYDROcodone-ACET 5/325MG TAB PO PRN (19:19)
[2025-10-11 01:00] VITALS: BP 150/69; PULSE 83; RESP 17; TEMP 97.9; O2SAT 96
[2025-10-11 05:00] VITALS: BP 143/77; PULSE 78; RESP 17; TEMP 97.7; O2SAT 95
[2025-10-11 09:00] VITALS: BP 149/73; PULSE 76; RESP 18; TEMP 98.6; O2SAT 97
--- NOTE | 2025-10-11 10:59 | DVHPN2 ---
Subjective No new complaints Changes from previous H/P or p: Changes Objective Vitals Vital Signs Date Time Temp Pulse Resp B/P (MAP) Pulse Ox O2 Delivery O2 Flow Rate FiO2 10/11/25 07:55 Room Air* 0 21 10/11/25 05:00 97.7 78 17 143/77 (99) 95 97.7 Intake/Output Intake and Output 10/11/25 07:00 Intake Total 1100 ml Balance 1100 ml Intake Oral 950 ml IV Total 150 ml # Voids 9 # Bowel Movements 3 General Appearance: Alert, Oriented X3, Cooperative, No acute distress Lungs: Clear to auscultation, Normal air movement Cardiovascular: Regular rate, Normal S1, Normal S2 Abdomen: Normal bowel sounds, Soft, No tenderness Extremities: Other (Left leg 2+ edema with erythema) Medications Current Medications Medications Dose Ordered Sig/Ilsa Route Start Time Stop Time Status Last Admin Dose Admin Sodium Chloride 10 ml Q8HR IV 10/04/25 14:00 10/11/25 05:37 10 ML Ondansetron HCl 4 mg Q4HP PRN IV 10/04/25 11:45 Enoxaparin Sodium 40 mg DAILY SC 10/05/25 10:00 10/11/25 09:27 40 MG Acetaminophen 650 mg Q6HP PRN PO 10/04/25 11:45 10/05/25 04:16 650 MG Nitroglycerin 0.4 mg Q5MINP PRN SL 10/04/25 11:45 Hydralazine HCl 10 mg Q6HP PRN IV 10/04/25 12:15 10/07/25 05:27 10 MG Clindamycin Phosphate 50 ml @ 50 mls/hr Q8HR IV 10/04/25 14:00 10/11/25 05:37 50 MLS/HR Ceftriaxone Sodium 50 ml @ 100 mls/hr DAILY@09 IV 10/05/25 09:00 10/11/25 09:26 100 MLS/HR Acetaminophen/ Hydrocodone Bitart 1 tab Q6HPRN PRN PO 10/10/25 16:15 10/11/25 08:31 1 TAB Laboratory Results Laboratory Tests 10/10/25 06:33 Urinalysis Test 10/04/25 11:45 Urine Color Light-yellow (Yellow) Urine Clarity Clear (Clear) Urine pH 5.5 (5.0-9.0) Urine Specific [place] 1.015 (1.001-1.035) Urine Protein 1+ (Negative) H Urine Ketones Negative (Negative) Urine Blood 1+ /uL (Negative) H Urine Nitrite Negative (Negative) Urine Bilirubin Negative (Negative) Urine Urobilinogen Normal mg/dL (Negative) Urine Leukocyte Esterase Negative /uL (Negative) Urine RBC 2 /hpf (0 - 3) Urine Microscopic WBC 1 /HPF (0-3) Urine Squamous Epithelial Cells Few /hpf (<5) Urine Bacteria Few /hpf (None Seen) H Urine Mucus Few (None Seen) Urine Glucose Normal mg/dL (Normal) Microbiology Microbiology Date/Time Source Procedure Growth Status 10/04/25 10:05 Blood Blood Culture - Final NO GROWTH AFTER 5 DAYS OF INCUBATION. Complete Assessment/Plan Assessment/Plan LLE cellulitis Sepsis due to above NSTEMI Type II HTN PLAN: Rocephin Clindamycin Lovenox Hydralazine prn Full code 10/06/2025: Continue IV antibiotics The patient is looking better He feels better Less edema Less erythema One more day on IV antibiotics in the hospital discharge home possibly in the morning 10/07/25: Continue IV antibiotics Physical therapy recommends SNF Consult social service for SNF 10/08/25: Arrange SNF 10/09/2025: Continue the current management with IV antibiotics Continue physical therapy The patient needs to go to SNF for rehab 10/11/2025: Discharge to SNF once a bed is available on p.o. antibiotics Augmentin Plan discussed with: Patient My Orders Orders - JOELLE WILSON MD Procedure Category Date Status Time Discharge DISCHARGE 10/10/25 Transmitted 16:00 Hydrocodone-Acet PHA 10/10/25 In Process 5/325mg Tab ([place] 16:15 Date of Service: Oct 11, 2025 Billing Provider: JOELLE WILSON MD Common Visit Codes: [id number] INP/OBS CARE(HIGH) JOELLE WILSON MD Oct 11, 2025 10:59
[2025-10-11 13:00] VITALS: BP 149/84; PULSE 71; RESP 17; TEMP 98.5; O2SAT 95
[2025-10-11 17:00] VITALS: BP 142/80; PULSE 78; RESP 17; TEMP 98; O2SAT 97
== END 2025-10-11 20:36 | DRG 871 ==
LOC: EDSEX 04:57 → ER 04:57 → EDBD 04:57 → OVERFLOW 11:43 → WEST WING 10-05 19:40
PROVIDERS: ADMIT Internal Medicine Geriatric Medicine; ATTEND Internal Medicine Geriatric Medicine
DX: A41.9 Sepsis, unspecified organism (principal); I21.A1 Myocardial infarction type 2; M62.82 Rhabdomyolysis; L03.116 Cellulitis of left lower limb; I10 Essential (primary) hypertension; E11.51 Type 2 diabetes mellitus with diabetic peripheral angiopathy without gangrene; E11.9 Type 2 diabetes mellitus without complications; M17.12 Unilateral primary osteoarthritis, left knee; Z79.899 Other long term (current) drug therapy
CPT/HCPCS: 36415; 71045; 73560; 73700; 80048; 80053; 81001; 82550; 83605; 83735; 83880; 84484; 85007; 85025; 85027; 85610; 85652; 85730; 87040; 93005; 93925; 93971; 97110; 97116; 97163; 97530; 99291; 99292; G0378; J3490